=== PATIENT | male | born 1960 | race African-American/Black ===

== ENCOUNTER 2018-03-17 07:06 | Outpatient (CLI) ==
--- NOTE | 2018-03-17 10:03 | CT ---
EXAM: CT abdomen pelvis with contrast HISTORY: Abdominal pain COMPARISON: None TECHNIQUE: Serial axial images of the abdomen pelvis were performed after 75 mL is of Omnipaque IV c ontrast was administered. These were obtained from the lung bases through the inferior pelvis. FINDINGS: The lung bases are clear. The liver is unremarkable with no focal hepatic lesion. The gallbladder is minimally distended. The adrenal glands are normal. There is an exophytic low attenuation lesion of the right kidney measuri ng 1.8 cm in diameter with indeterminate Hounsfield units. The left kidney is unremarkable. The spl een is normal. The pancreas is normal. The stomach is minimally distended. Small bowel in the abdomen pelvis is normal. The appendix is normal. The colon is unremarkable. Th e urinary bladder is distended. The prostate is unremarkable. There is no free air, free fluid or l ymphadenopathy. There is degenerative disease of the lumbosacral spine. IMPRESSION: 1. No acute intra-abdominal or pelvic process to account for patient's symptoms. 2. Nonspecific right renal lesion. Ultrasound is recommended to further evaluate.
--- NOTE | 2018-03-17 11:10 | MRI ---
EXAM: MRI left shoulder without contrast COMPARISON: None available. HISTORY: Left shoulder pain and grinding with numbness in the hands. Injury several years ago. No history of shoulder surgery. TECHNIQUE: Multiplanar noncontrast MR images of the left shoulder were acquired using a 1.2 [employer] ma gnet. FINDINGS: No recent radiographs of the left shoulder are available for comparison and radiographic c orrelation is recommended. There is marked subscapularis tendinosis with linear intrasubstance fissuring/tearing of the insertio nal fibers without a full-thickness tear. Moderately severe supraspinatus mild infraspinatus tendino sis. There is bursal surface fraying of the supraspinatus at/lateral to the acromion. Small partial -thickness/rim rent tear of the insertional fibers the supraspinatus anteriorly measuring 0.4 cm medi al to lateral dimension without a full-thickness tear or tendon retraction. Small amount of fluid in the subacromial/subdeltoid bursa. Small degenerative cyst within the greater tuberosity humerus. Limited assessment glenoid labrum on this non arthrographic study. Diminished size irregularity the posterior glenoid labrum suggesting degenerative fraying/degenerative type tear. There is some thick ening scarring involving the capsulolabral anteriorly and inferiorly suggesting sequela of old capsul olabral injury. Edema adjacent to the axillary pouch related to a sprain or changes of adhesive capsu litis. Glenohumeral joint osteoarthrosis with most pronounced thinning of the cartilage along the pos terior glenoid with degenerative spurring of the glenoid rim. Prominent marginal osteophytes involvi ng the superomedial portion of the humeral head. Mild posterior subluxation of the humeral head with in the glenoid fossa. No evidence of an acute fracture or glen dislocation. The long head of the biceps is located within the bicipital groove with mild tendinosis. There are sub-centimeter axillary lymph nodes, nonspecific. Marked hypertrophic degenerative changes of the acromioclavicular joint with superiorly inferiorly di rected osteophytes representing a potential source of subacromial impingement. There is marrow edema throughout the distal clavicle with small erosions which may represent post-traumatic osteolysis. S prain with scarring of the acromioclavicular joint capsule without abnormal widening of the joint spa ce. No evidence of an os acromiale. IMPRESSION: 1. Rotator cuff tendinosis most severe involving the subscapularis and supraspinatus. Linear intras ubstance fissuring/tearing of the distal subscapularis. Bursal surface fraying of the supraspinatus in addition to a small partial-thickness/rim rent tear of the anterior insertional fibers. No full-t hickness rotator cuff tear or tendon retraction. 2. Glenohumeral joint osteoarthrosis with most severe thinning of the cartilage along the posterior glenoid with mild posterior subluxation of the humeral head within the glenoid fossa. No acute fractu re or dislocation. 3. Sprain versus adhesive capsulitis involving the axillary pouch. Scarring along the anteroinferio r capsulolabral junction related to an old capsulolabral injury. Degenerative fraying/degenerative t ype tear of the posterior glenoid labrum. 4. Marked hypertrophic degenerative changes of the acromioclavicular joint. Marrow edema throughout the distal clavicle with erosive changes which may represent post-traumatic osteolysis without abnor mal widening of the joint space. 5. Mild long biceps tendinosis. 6. Sub centimeter axillary lymph nodes which are nonspecific and may be reactive in nature.
== END 2018-03-17 07:07 | disposition home or self-care (01) ==
LOC: RAD 07:06 → LAB 07:07
PROVIDERS: ATTEND Family Medicine
DX: M25.512 Pain in left shoulder (principal); R10.9 Unspecified abdominal pain
CPT/HCPCS: 36415; 82565

== ENCOUNTER 2018-03-19 07:25 | Outpatient (CLI) ==
--- NOTE | 2018-03-19 09:59 | US ---
EXAM: Renal ultrasound HISTORY: Right renal lesion COMPARISON: CT abdomen pelvis 03/17/2018 TECHNIQUE: Sonographic evaluation of the kidneys was performed with limited Doppler evaluation. FINDINGS: The right kidney measures 10.3 x 4.5 x 4.9 cm with renal cortical thickness of 1.1 cm. Th ere is normal echogenicity and color Doppler flow. No stone or hydronephrosis is identified. There is an anechoic cyst in the superior pole measuring 1.7 x 1.6 x 1.6 cm. The left kidney measures 11.2 x 5.2 x 5.0 cm with renal cortical thickness of 1.4 cm. There is usman l echogenicity and color Doppler flow. No stone or hydronephrosis is identified. Limited evaluation of the urinary bladder is unremarkable. IMPRESSION: Anechoic exophytic lesion of the right kidney consistent with cyst.
== END 2018-03-19 07:26 | disposition home or self-care (01) ==
LOC: RAD 07:25
PROVIDERS: ATTEND Family Medicine
DX: R93.421 Abnormal radiologic findings on diagnostic imaging of right kidney (principal)